=== PATIENT | male | born 1955 | race Caucasian/White ===

== ENCOUNTER 2017-02-13 10:22 | Emergency (ER) | payer MEDICAID, OTHER ==
[~2017-02-13] VITALS: Wt 99.0 kg
[2017-02-13] MEDS ORDERED: HYDROCODONE/APAP (5/325) TAB PO ONE (11:00)
--- NOTE | 2017-02-13 11:23 | ERD ---
ER Documentation Chief Complaint Date/Time DATE: 02/13/17 TIME: 11:22 Chief Complaint BILAT KNEE PAIN, SWELLING, ONSET 3 WEEKS HPI 61-year-old male presents with bilateral knee pain, with swelling for the past 3 weeks. He reports he has achy pain, and stiffness, associated with swelling that goes to his lower legs, worse on the left side. Pain is 8 worse when he is ambulatory, better at rest. He denies any trauma fever chills. Denies back pain. ROS All systems reviewed and are negative except as per history of present illness. Medications Home Meds Active Scripts Hydrocodone/Acetaminophen ([place] 5-325 Tablet) 1 Each Tablet, 1 TAB PO Q6H Y for PAIN, #10 TAB Prov:KEYON FERNANDEZ PA-C 02/13/17 Naproxen* (Naprosyn*) 500 Mg Tablet, 500 MG PO BID Y for PAIN AND/OR INFLAMMATION, #30 TAB Prov:KEYON FERNANDEZ PA-C 02/13/17 Allergies Allergies: Coded Allergies: No Known Drug Allergies (Verified Allergy, Unknown, 02/13/17) PMhx/Soc History of Surgery: Yes (RT ANKLE SURGERY ) Anesthesia Reaction: No Hx Neurological Disorder: No Hx Respiratory Disorders: No Hx Cardiac Disorders: No Hx Psychiatric Problems: No Hx Miscellaneous Medical Probl: No Hx Alcohol Use: No Hx Substance Use: No Hx Tobacco Use: No Smoking Status: Never smoker Physical Exam Vitals Vital Signs Date Time Temp Pulse Resp B/P Pulse Ox O2 Delivery O2 Flow Rate FiO2 02/13/17 10:24 98.0 75 18 152/72 97 Physical Exam General: Well-developed, well-nourished. The patient appears in no acute distress. HEENT: Head is normocephalic, atraumatic. No scleral icterus. Neck: Supple. Nontender. Lungs: Clear to auscultation. Normal air movement. Heart: Regular rate and rhythm. S1 and S2 are normal. No murmurs, gallops, or rubs. Abdomen: Soft, nontender, nondistended. Bowel sounds are normoactive. Extremities: Swelling to the left lower extremity greater than the right. Bilateral knees are atraumatic, he is ambulatory, full range of motion to bilateral knees. There is no warmth or erythema. No bony deformities. Neurologic: Alert and oriented 3. No focal deficits. Skin: Normal turgor. No rash or lesions. Results 24 hrs Current Medications Medications (Trade) Dose Ordered Sig/Kristie Route PRN Reason Start Time Stop Time Status Last Admin Dose Admin Acetaminophen/ Hydrocodone Bitart ([place] (5/325)) 1 tab ONCE ONCE PO 02/13/17 11:00 02/13/17 11:01 DC 02/13/17 10:50 DIAGNOSTIC IMAGING REPORT Patient: AVIS LIND : 1955 Age: 61 Sex: M MR #: [id number] DOS: 02/13/17 1041 Ordering MD: KEYON FERNANDEZ PA-C Location: [facility] Room/Bed: PROCEDURE: US Lower extremity Venous. CLINICAL INDICATION: Bilateral lower extremity edema TECHNIQUE: Multiple sonographic images of the bilateral lower extremity deep venous system was obtained utilizing grayscale, color-flow, compressive sonography and doppler imaging with augmentation. The images were reviewed on a PACS workstation. COMPARISON: None. FINDINGS: There is normal compressibility and flow within the bilateral common femoral, femoral , posterior tibial and popliteal veins. RPTAT: AA IMPRESSION: No sonographic evidence for deep venous thrombosis. .Warren Laureano MD, MD Date Time Electronically viewed and signed by .Warren Laureano MD, on 02/13/2017 11: 35 .S/ CC: KEYON FERNANDEZ PA-C DIAGNOSTIC IMAGING REPORT Patient: AVIS LIND : 1955 Age: 61 Sex: M MR #: [id number] DOS: 02/13/17 1041 Ordering MD: KEYON FERNANDEZ PA-C Location: [facility] Room/Bed: PROCEDURE: XR bilateral Knees. CLINICAL INDICATION: Bilateral knee pain. TECHNIQUE: Three views of both knees are available for review. COMPARISON: None available FINDINGS: Right side: There is no acute fracture or dislocation. There is tricompartmental osseous spurring. There is mild joint space narrowing within the medial compartment. There is also joint space narrowing within the patellofemoral compartment. There is no significant joint effusion. Soft tissues are unremarkable. Left side: There is no acute fracture or dislocation. There is tricompartmental osseous spurring. There is mild joint space narrowing within the medial compartment. There is also joint space narrowing within the patellofemoral compartment. There is no significant joint effusion. Soft tissues are unremarkable. IMPRESSION: 1. Tricompartmental osteoarthrosis, more prominent within the medial and patellofemoral compartments. 2. No acute fracture or dislocation is seen. RPTAT: EE .Cecy Montgomery MD, MD Date Time Electronically viewed and signed by .Cecy Montgomery MD, MD on 02/13/2017 11: 45 .T/ CC: KEYON FERNANDEZ PA-C Procedures/MDM ED course: He was given [place] for pain. MDM: 61-year-old male presents with bilateral knee pain, there is swelling associated on the left side greater than the right. Patient has tricompartmental knee arthritis bilaterally, can explain his pain. No evidence of fracture, signs of infection or dislocation. Patient does have swelling on the right as well as left lower extremities, Doppler was done that was negative for DVT bilaterally. There are no signs of cellulitis, abscess, arterial occlusion, or back pain associated. Patient's swelling is likely associated to the osteoarthritis. He will be given a short course of [place] with Naprosyn, and was asked to follow-up with orthopedics. Patient's blood pressure was elevated (>120/80) but appears stable without evidence of hypertension emergency or urgency. The patient was counseled about the risks of hypertension and urged to pursue outpatient monitoring and therapy within a week with their primary care physician. Departure Diagnosis: Primary Impression: Knee pain Condition: Good KEYON FERNANDEZ PA-C Feb 13, 2017 11:23
--- NOTE | 2017-02-13 11:35 | RADRPT ---
PROCEDURE: US Lower extremity Venous. CLINICAL INDICATION: Bilateral lower extremity edema TECHNIQUE: Multiple sonographic images of the bilateral lower extremity deep venous system was obt ained utilizing grayscale, color-flow, compressive sonography and doppler imaging with augmentation. The images were reviewed on a PACS workstation. COMPARISON: None. FINDINGS: There is normal compressibility and flow within the bilateral common femoral, femoral , posterior ti bial and popliteal veins. RPTAT: AA IMPRESSION: No sonographic evidence for deep venous thrombosis. .Warren Laureano MD, MD Date Time Electronically viewed and signed by .Warren Laureano MD, on 02/13/2017 11:35 .S/
--- NOTE | 2017-02-13 11:40 | RADRPT ---
PROCEDURE: XR bilateral Knees. CLINICAL INDICATION: Bilateral knee pain. TECHNIQUE: Three views of both knees are available for review. COMPARISON: None available FINDINGS: Right side: There is no acute fracture or dislocation. There is tricompartmental osseous spurring. There is mild joint space narrowing within the medial compartment. There is also joint space narro wing within the patellofemoral compartment. There is no significant joint effusion. Soft tissues ar e unremarkable. Left side: There is no acute fracture or dislocation. There is tricompartmental osseous spurring. There is mild joint space narrowing within the medial compartment. There is also joint space narrow ing within the patellofemoral compartment. There is no significant joint effusion. Soft tissues ar e unremarkable. IMPRESSION: 1. Tricompartmental osteoarthrosis, more prominent within the medial and patellofemoral compartment s. 2. No acute fracture or dislocation is seen. RPTAT: EE .Cecy Montgomery MD, MD Date Time Electronically viewed and signed by .Cecy Montgomery MD, on 02/13/2017 11:45 .T/
[2017-02-13] MEDS ORDERED: NAPR-260 PO (11:52)
[2017-02-13] MEDS ORDERED: HYDR-906 PO (11:52)
== END 2017-02-13 12:07 | disposition home or self-care (01) ==
LOC: FTE 10:22
DX: M25.562 Pain in left knee (principal); M25.561 Pain in right knee
CPT/HCPCS: 73562; 93970; Z7610

== ENCOUNTER 2018-07-18 13:04 | Emergency (ER) | payer MEDICAID ==
[~2018-07-18] VITALS: Wt 91.6 kg
[~2018-07-18 13:04] MED LIST: HYDR-4011 PO; NAPR-985 PO
[2018-07-18] MEDS ORDERED: KETOROLAC 60 MG INJ IM STA (14:13)
[2018-07-18] MEDS ORDERED: HYDROCODONE/APAP (5/325) TAB PO ONE (14:30)
[2018-07-18] MEDS ORDERED: TRAM50TA2 PO (16:42)
--- NOTE | 2018-07-18 16:45 | ERD ---
ER Documentation Chief Complaint Chief Complaint cc: left shoulder, left arm, left leg pain s/p injury 1 month ago, lifting HPI 63-year-old male presents with pain in his left shoulder left rib area. He also has pain in his left leg. Patient does do a lot of carrying heavy objects on his left shoulder. Denies any acute injury. Denies any head injury, restricted range of motion or weakness. Denies any hemoptysis, syncope, shortness of br eath or chest pain. ROS All systems reviewed and are negative except as per history of present illness. Medications Home Meds Active Scripts Tramadol HCl (Tramadol HCl) 50 Mg Tablet, 50 MG PO Q4 PRN for PAIN, #20 TAB Prov:ARPIT NIEVES MD 07/18/18 Hydrocodone/Acetaminophen ([place] 5-325 Tablet) 1 Each Tablet, 1 TAB PO Q6H PRN for PAIN, #10 TAB Prov:KEYON FERNANDEZ PA-C 02/13/17 Naproxen* (Naprosyn*) 500 Mg Tablet, 500 MG PO BID PRN for PAIN AND/OR INFLAMMATION, #30 TAB Prov:KEYON FERNANDEZ PA-C 02/13/17 Allergies Allergies: Coded Allergies: No Known Drug Allergies (Verified Allergy, Unknown, 07/18/18) PMhx/Soc History of Surgery: Yes (RT ANKLE SURGERY ) Anesthesia Reaction: No Hx Neurological Disorder: No Hx Respiratory Disorders: No Hx Cardiac Disorders: No Hx Psychiatric Problems: No Hx Miscellaneous Medical Probl: No Hx Alcohol Use: No Hx Substance Use: No Hx Tobacco Use: No Smoking Status: Never smoker FmHx Family History: No diabetes, No coronary disease, No other Physical Exam Vitals Vital Signs Date Temp Pulse Resp B/P (MAP) Pulse Ox O2 O2 Flow FiO2 Time Delivery Rate 07/18/18 97.4 66 19 143/82 100 13:12 (102) Physical Exam Const: No acute distress Head: Atraumatic Eyes: Normal Conjunctiva ENT: Normal External Ears, Nose and Mouth. Neck: Full range of motion. No meningismus. Resp: Clear to auscultation bilaterally Cardio: Regular rate and rhythm, no murmurs Abd: Soft, non tender, non distended. Normal bowel sounds Skin: No petechiae or rashes Back: No midline or flank tenderness Ext: No cyanosis, or edema. Tenderness primarily over the left shoulder capsule area. He is mild tenderness in the left inferior scapular area. There is no appreciable neck tenderness. He has no restricted range of motion or weakness. Neur: Awake and alert Psych: Normal Mood and Affect Results 24 hrs Current Medications Medications Dose Sig/Kristie Start Time Status Last (Trade) Ordered Route PRN Stop Time Admin Dose Reason Admin Ketorolac 60 mg ONCE STAT 07/18/18 DC 07/18/18 Tromethamine IM 14:13 07/18/18 14:30 (Toradol) 14:15 1 tab ONCE ONCE 07/18/18 DC 07/18/18 Acetaminophen PO 14:30 07/18/18 14:30 / 14:31 Hydrocodone Bitart ([place] (5/325)) Procedures/MDM X-ray Shoulder 3V Interpreted by me: Bones: No fracture Joints: No dislocation Foreign body: None impression-normal left shoulder x-ray Chest X-ray 1V Interpreted by me: Soft Tissue: No acute abnormalities Bones: No acute abnormalities. There may be a nodule off to the left T9, oblique rib recommended. Mediastinum/Cardiac Silhouette/Lungs: No acute abnormalities. Impression- normal 1 view chest x-ray X-ray left ribs 2V Interpreted by me: Soft Tissue: No acute abnormalities Bones: No acute abnormalities Mediastinum/Cardiac Silhouette/Lungs:No acute abnormalities Given Toradol 30 mg IM and [place] 5 mg by mouth. Since with left shoulder pain, left chest wall pain in addition to pain mildly in the neck and left lower extremity. Appears to be muscular skeletal pain. Current signs or symptoms suggest fracture, dislocation, PE, aortic dissection, neurologic deficit, additional emergent causes of presenting complaints. Will treat with tramadol, primary care follow-up and return precautions. The patient was stable with no new complaints during the ER course. Clinically, there is no current evidence to suggest meningitis, sepsis, acute abdomen, pneumonia, stroke, acute coronary syndrome, pulmonary embolism, aortic dissection or any other emergent condition appearing to require further evaluation or hospitalization. Patient counseled regarding my diagnostic impression and care plan. Prior to discharge all questions answered. Pt agrees with treatment plan and understands strict return precautions. Pt is instructed to follow up with primary care provider within 24-48 hours. Precautionary instructions provided including instructions to return to the ER if not improving or for any worsening or changing symptoms or concerns. The patient's blood pressure was elevated (>120/80) but appears stable without evidence of hypertension emergency or urgency. The patient was counseled about the risks of hypertension and urged to pursue outpatient monitoring and therapy within a week with their primary care physician. I discussed the findings with the patient. I advised the patient to follow-up with the primary physician in about 1-2 days, sooner if needed and return if any concern. Departure Diagnosis: Primary Impression: Shoulder pain, left Chronicity: acute Qualified Codes: M25.512 - Pain in left shoulder Condition: Stable Patient Instructions: Shoulder Pain (Uncertain Cause) Additional Instructions: Examines normal hoy. Cheque otro vez con valencia doctor primario en el proximo dove or regresa para mas o nueva simptomas. ARPIT NIEVES MD Jul 18, 2018 16:45
[2018-07-18 17:13] VITALS: BP 145/65; PULSE 75; RESP 20
== END 2018-07-18 17:20 | disposition home or self-care (01) ==
LOC: FTE 13:04
DX: M25.512 Pain in left shoulder (principal)
CPT/HCPCS: 71045; 71100; 73030; 96372; J1885; Z7502; Z7610

== ENCOUNTER 2018-11-13 12:15 | Emergency (ER) | payer MEDICAID ==
[~2018-11-13] VITALS: Wt 91.3 kg
[~2018-11-13 12:15] MED LIST changes: +TRAM50TA2 PO
[2018-11-13 12:54] VITALS: BP 144/76; PULSE 60; RESP 20
[2018-11-13] MEDS ORDERED: KETOROLAC 30 MG INJ IM STA (14:18)
--- NOTE | 2018-11-13 14:21 | ERD ---
ER Documentation Chief Complaint Chief Complaint R arm/ shoulder pain worse over past 2 mo; no relief w motrin. no trauma HPI 63-year-old male who presents with right shoulder pain radiating to his right upper extremities had for 2 months. He is been taking Motrin at home but is not helping. He states he was here a few months ago for the same thing on the left side and he got Toradol which helped him a lot and he would like an injection of Toradol at this time. He has no chest pain palpitations or shortness of breath. He denies any trauma. No fever. No numbness or tingling. ROS All systems reviewed and are negative except as per history of present illness. Medications Home Meds Active Scripts Tramadol HCl (Tramadol HCl) 50 Mg Tablet, 50 MG PO Q4 PRN for PAIN, #20 TAB Prov:ARPIT NIEVES MD 07/18/18 Hydrocodone/Acetaminophen ([place] 5-325 Tablet) 1 Each Tablet, 1 TAB PO Q6H PRN for PAIN, #10 TAB Prov:KEYON FERNANDEZ PA-C 02/13/17 Naproxen* (Naprosyn*) 500 Mg Tablet, 500 MG PO BID PRN for PAIN AND/OR INFLAMMATION, #30 TAB Prov:KEYON FERNANDEZ PA-C 02/13/17 Allergies Allergies: Coded Allergies: No Known Drug Allergies (Verified Allergy, Unknown, 07/18/18) PMhx/Soc History of Surgery: Yes (RT ANKLE SURGERY ) Anesthesia Reaction: No Hx Neurological Disorder: No Hx Respiratory Disorders: No Hx Cardiac Disorders: No Hx Psychiatric Problems: No Hx Miscellaneous Medical Probl: No Hx Alcohol Use: No Hx Substance Use: No Hx Tobacco Use: No FmHx Family History: No diabetes Physical Exam Vitals Vital Signs Date Temp Pulse Resp B/P (MAP) Pulse Ox O2 O2 Flow FiO2 Time Delivery Rate 11/13/18 98.5 60 20 144/76 99 12:54 (98) Physical Exam Const: No acute distress Head: Atraumatic Neck: Full range of motion. No meningismus. Resp: Clear to auscultation bilaterally Cardio: Regular rate and rhythm, no murmurs Upper Extremity -right Compartments: Soft Motor: Full active range of motion shoulder/elbow/wrist/hand Sensation: Intact shoulder/pinky/middle finger/thumb web space Bones: Nontender humerus/elbow/forearm/wrist/hand Snuffbox: Nontender Joints: No effusion Pulses/Perfusion: 2+ radial, Capillary refill < 2 seconds Procedures/MDM Patient has 2 months of right shoulder and arm pain. No history of trauma. He is ambulatory and neurovascularly intact. Slightly musculoskeletal pain. He states he has had the same thing on the left side and was relieved with Toradol so he would like Toradol now. He was given Toradol and [place] here as well as prescription for naproxen and Flexeril per their request. Patient counseled regarding my diagnostic impression and care plan. Prior to discharge all q uestions answered. Pt agrees with treatment plan and understands strict return precautions. Pt is instructed to follow up with primary care provider within 24- 48 hours. Precautionary instructions provided including instructions to return to the ER if not improving or for any worsening or changing symptoms or concerns. Departure Diagnosis: Primary Impression: Pain of right arm Condition: Stable AUDELIA BEATTY PA-C November 13, 2018 14:21
[2018-11-13] MEDS ORDERED: NAPR-985 PO (14:22)
[2018-11-13] MEDS ORDERED: CYCL10TA7 PO (14:22)
[2018-11-13] MEDS ORDERED: HYDROCODONE/APAP (5/325) TAB PO ONE (14:30)
== END 2018-11-13 14:59 | disposition home or self-care (01) ==
LOC: FTE 12:15
DX: M79.601 Pain in right arm (principal)
CPT/HCPCS: 96372; J1885; Z7502; Z7610